=== PATIENT | female | born 1960 | race Two or more races ===

== ENCOUNTER 2020-01-12 01:14 | Inpatient (IN) | payer OTHER ==
[2020-01-12] VITALS (7 sets, daily range): BP systolic 108–156; BP diastolic 61–77
[~2020-01-12] VITALS: Ht 157.5 cm; Wt 65.0 kg
--- NOTE | 2020-01-12 01:17 | Emergency Room Report ---
History of Present Illness General Chief Complaint: shortness of breath Source: Patient, EMS Present Illness HPI Patient is a 59-year-old female presented for increased difficulty with breathing. Patient was brought in by EMS. Patient had onset of symptoms today. Had not been having any fever.Patient had worsening shortness of breath today. Had recent coronavirus testing with her doctor but does not know the result yet. Patient had been having increased shortness of breath. Increased generalized body aches.. Had not been vomiting. Denies any leg pain or swelling. No prior cardiac history. Allergies: Coded Allergies: No Known Allergies (Unverified , 01/12/20) Patient History Past Medical History: see triage record Reviewed Nursing Documentation: PMH: Agreed; PSxH: Agreed Review of Systems All Other Systems: negative except mentioned in HPI Physical Exam Sp02 EP Interpretation: reviewed, normal General Appearance: GCS 15, mild distress Head: atraumatic ENT: normal ENT inspection, hearing grossly normal, normal voice Neck: normal inspection, full range of motion, supple, no bony tend Respiratory: normal inspection, normal breath sounds, no respiratory distress, no retraction, wheezing Cardiovascular #1: regular rate, rhythm, no edema Gastrointestinal: normal inspection, normal bowel sounds, non tender, soft, no guarding, no hernia Genitourinary: no CVA tenderness Musculoskeletal: normal inspection, back normal, normal range of motion Neurologic: alert, motor strength/tone normal, channel marketing specialist III-XII nml as tested, oriented x3, responsive, speech normal, normal inspection Psychiatric: normal inspection, judgement/insight normal, mood/affect normal Skin: no rash Medical Decision Making Diagnostic Impression: Primary Impression: Abdominal pain Additional Impressions: Lactic acidosis Dehydration ER Course Patient presented for shortness of breath. Differential diagnosis include was not limited to pneumonia, sepsis, anemia, congestive heart failure, acidosis among others. Because of complexity of patient's case laboratory tests and imaging studies were ordered. Patient was noted to have some symptoms consistent with a coronavirus. Coronavirus test was negative. Chest x-ray showed some increased interstitial markings without any focal infiltrate. Laboratory testing showed normal white blood count with adequate hemoglobin. She is also given steroids and breathing treatment. Lactic acid level was noted to be elevated. Patient started on IV fluids. She was given IV antibiotics. Dr. Trevor Tobar was contacted for inpatient management. Status: improved Disposition: ADMITTED INPATIENT Condition: Serious Scripts No Active Prescriptions or Reported Meds Tucker Reyez MD Jan 12, 2020 01:17
--- NOTE | 2020-01-12 01:20 | NUR ---
ED Nurse Note: brought in by ambulance jeffyd ra 66 from home c/o generalized body ache, headache and sob x3 days. denies fever, nausea and vomitting. seen by PMD yesterday for same reason; awaiting covid result.changed into gown; attached to monitor. patient ao4 with no acute signs of distress. vitals stable to baseline. all safety measures met.
--- NOTE | 2020-01-12 01:30 | NUR ---
ED Nurse Note: iv access established. blood and urine collected;sent down to lab.
[2020-01-12 02:04] LABS: BASOPHILS % (AUTO) 1.2 % (0.0-2.0); EOSINOPHILS % (AUTO) 1.9 % (0.0-3.0); HEMOGLOBIN 12.8 G/DL (12.0-16.0); LYMPHOCYTES % (AUTO) 37.3 % (20.0-45.0); MEAN CORPUSCULAR VOLUME 88 FL (80-99); MONOCYTES % (AUTO) 7.4 % (1.0-10.0); NEUTROPHILS % (AUTO) 52.1 % (45.0-75.0); PLATELET COUNT 269 K/UL (150-450); RED BLOOD COUNT 4.19 M/UL (4.20-5.40); WHITE BLOOD COUNT 7.6 K/UL (4.8-10.8)
[2020-01-12 02:11] LABS: ANION GAP 9 mmol/L (5-15); BLOOD UREA NITROGEN 13 mg/dL (7-18); CALCIUM 9.2 MG/DL (8.5-10.1); CARBON DIOXIDE 28 MMOL/L (21-32); CHLORIDE 99 MMOL/L (98-107); CREATININE 0.9 MG/DL (0.55-1.30); POTASSIUM 3.1 MMOL/L (3.5-5.1); SODIUM 136 MMOL/L (136-145)
[2020-01-12 02:18] LABS: APPEARANCE,URINE SLIGHTLY CLOUDY; BILIRUBIN, URINE NEGATIVE (NEGATIVE); COLOR,URINE PALE YELLOW; GLUCOSE, URINE (UA) NEGATIVE (NEGATIVE); KETONES,URINE NEGATIVE (NEGATIVE); LEUKOCYTE ESTERASE ,URINE NEGATIVE (NEGATIVE); NITRITE,URINE NEGATIVE (NEGATIVE); PH,URINE 8 (4.5-8.0); PROTEIN,URINE NEGATIVE (NEGATIVE); UROBILINOGEN,URINE NORMAL MG/DL (0.0-1.0)
[2020-01-12 02:25] LABS: ALANINE AMINOTRANSFERASE 28 U/L (12-78); ALBUMIN 3.8 G/DL (3.4-5.0); ALKALINE PHOSPHATASE 64 U/L (46-116); ASPARTATE AMINO TRANSFERASE 24 U/L (15-37); BILIRUBIN,TOTAL 0.3 MG/DL (0.2-1.0); CKMB 3.8 NG/ML (0.0-3.6); CREATINE KINASE 345 U/L (26-308); PHOSPHORUS 2.4 MG/DL (2.5-4.9)
[2020-01-12] MEDS ORDERED: cefTRIAXone 1 GM in NS 55 ML IVPB ONE (02:30)
[2020-01-12] MEDS ORDERED: Albuterol/Ipratropium 3ml neb HHN ONE (02:30)
--- NOTE | 2020-01-12 02:30 | NUR ---
ED Nurse Note: lactic reflex drawn; sent down to lab.
--- NOTE | 2020-01-12 04:03 | NUR ---
Patients daughter Sil called and left her phone number [phone] in case needed.
--- NOTE | 2020-01-12 04:07 | NUR ---
ED Nurse Note: report given to tere montgomery. patient to be admitted to tele [id number] under the care of allyson naqvi.
--- NOTE | 2020-01-12 04:40 | NUR ---
TRANSFER TO FLOOR: Patient transferred to tele 203 as ordered, per allyson naqvi. Report given to tere montgomery. patient stable for transport. transferred to unit via gurney with js and rn. belongings and admission packet sent with patient.
--- NOTE | 2020-01-12 04:50 | NUR ---
NURSE NOTES: Received patient from Carol JUDD RN. Patient came to via gurney; patient was able to self transfer to bed with steady gait. Patient is A/O x4 patient is Divehi and [place]ankan speaking; able to make needs known. Patient is in stable condition; no acute distress noted. No pain reported at this time. Iv site is left AC 18G s/l; patient and flushed. no erythema or bleeding noted. Placed patient on 5 lead monitoring engineer: patient is running SR. Fall precaution in place, Yellow gown and soaks are on. Bed in lowest position, brake locked, side rails up x2. Call light with in reach. Patient educated to use call light when nedding assistance. Will contact Dr. Tobar in regards to admission orders. Will continue to monitor.
--- NOTE | 2020-01-12 05:03 | Diagnostic Imaging Report ---
EXAM: XR Chest, 1 View CLINICAL HISTORY: SOB TECHNIQUE: Frontal view of the chest. COMPARISON: No relevant prior studies available. FINDINGS: Lungs: Unremarkable. No consolidation. Pleural space: Unremarkable. No pneumothorax. Heart: Unremarkable. No cardiomegaly. Mediastinum: Unremarkable. Bones/joints: Degenerative change of the spine. Cholecystectomy clips, incidentally noted. Osseous demineralization. IMPRESSION: No focal infiltrate.
--- NOTE | 2020-01-12 05:05 | NUR ---
NURSE NOTES: Lest message for Dr. Tobar in regards to admission orders awaiting call back. Will continue to monitor.
--- NOTE | 2020-01-12 06:45 | NUR ---
NURSE NOTES: Received admission orders from Dr. Tobar noted and carried out.
--- NOTE | 2020-01-12 06:50 | NUR ---
NURSE NOTES: Followed up with Dr. Tobar for admission orders.
[2020-01-12] MEDS ORDERED: Morphine Sulfate 2mg/ml Inj(IV/IM USE ONLY) IVP PRN (07:15)
--- NOTE | 2020-01-12 07:45 | NUR ---
NURSE NOTES: RECEIVED PATIENT A/A/OX4 IN BED CALM ANC COMFORTABLE. PATIENT C/O DIFFICULTY SWALLOWING. ALTHOUGH, TOLERATES CLEAR LIQUID DIET. WILL INFORM PMD. PATIENT AMBULATES WITH MININMAL ASSISTANCE. NO ACUTE CARDIO-RESP DISTRESS NOTED. PIV PATENT AND INTACT. BED IS IN THE LOWEST POSITION AND BED BRAKES LOCKED @ ALL TIMES. CALL LIGHT IS WITHIN EASY REACH. SIDERAILS ARE UPX2. WILL CONT TO MONITOR.
--- NOTE | 2020-01-12 07:46 | NUR ---
NURSE HAND-OFF REPORT: Important Events on Shift:Patient was admitted. Patient Status: Stable Diet: Clear liquid Pending Orders: [] Pending Results/Labs:[] Pending MD notification:[] Latest Vital Signs: Temperature 98.1 , Pulse 98 , B/P 121 /69 , Respiratory Rate 18 , O2 SAT 98 , Room Air, O2 Flow Rate . Vital Sign Comment: [] EKG Rhythm: Sinus Rhythm Rhythm change?: N MD Notified?: - MD Response: Latest Pascual Fall Score: 20 Fall Risk: Low Risk Safety Measures: Call light Within Reach, Bed Alarm Zone 1, Side Rails Side Rails x2, Bed position Low and Locked. Fall Precautions: Yellow Socks Yellow Gown Door Sign Patient Fall Education Report given to Isha HONG.
--- NOTE | 2020-01-12 13:25 | NUR ---
NURSE NOTES: TRANSFER TO [facility]. REPORT GIVEN TO QUEENIE IYER. PERSONAL BELONGINGS NOTED. NO ACUTE RESP DISTRESS NOTED. AMBULATES WITH MINIMAL ASSISTANCE. NS @ 100CC/HR INFUSING WELL. PIV PATENT AND INTACT. BED IN THE LOWEST POSITION. CALL LIGHT IS WITHIN REACH. SIDERAILS ARE UPX2. WILL CONT TO MONITOR.
--- NOTE | 2020-01-12 16:44 | History and Physical Report ---
DATE OF ADMISSION: 01/12/2020 HISTORY OF PRESENT ILLNESS: This is a 59-year-old female who came to the emergency room for multiple symptoms, short of breath, choking sensation, lactic acidosis, hypokalemia, abdominal pain. Her COVID was negative. The patient is alert, oriented, doing better. The patient also failed swallow evaluation. Currently, she is awake, alert, sitting at the bedside. On exam, the patient has no medical issues. PAST MEDICAL HISTORY: None. ALLERGIES: None. FAMILY HISTORY: Noncontributory. PHYSICAL EXAMINATION: GENERAL: This is an elderly female, currently very comfortable, sitting in the bed with the family. VITAL SIGNS: Blood pressure is 120/61, pulse 71, respirations 19, temperature 96.7. HEENT: NAD. CHEST: Bilaterally clear. CARDIOVASCULAR: Regular rhythm. No gallop. No murmur. ABDOMEN: Soft. Positive bowel sounds. Nontender. EXTREMITIES: No edema. GENITOURINARY: Deferred. LABORATORY DATA: White count 7.6, hemoglobin 13, hematocrit 37, platelets are 269. Chemistry panel, lactic acid 2.30, now is 1.30, potassium 3.1. CK was 345. Troponins are negative and BNP was negative. C-reactive protein is negative. Urine has 1+ blood. Her chest x-ray is negative. The patient's ABG pH was normal. ASSESSMENT: 1. No abdominal pain. 2. Choking sensation. 3. Generalized weakness. PLAN: We will order CBC, BMP tomorrow. Swallow evaluation today. Continue clear liquid diet. Discussed with the daughter who was at bedside. Trevor Tobar M.D. DR: TIFFANY JOB#: [id number] CC:
--- NOTE | 2020-01-12 19:40 | NUR ---
NURSE NOTES: received pt and report from QUEENIE [place]. Patient alert and oriented x4 in no acute distress. IV site noted clean dry and intact and running fluids as ordered. Patient with no c/o pain. Plan of care discussed.
--- NOTE | 2020-01-12 19:43 | NUR ---
HAND-OFF: Report given to QUEENIE Polanco. pt is stable condition.
--- NOTE | 2020-01-12 22:46 | NUR ---
NURSE NOTES: Changed CATALOGING ASSISTANT syringe. Wasted 3.74 from previous syringe and after setting up new syringe VTBI was at 27.8
[2020-01-13] VITALS: BP 121/70
[2020-01-13 04:00] VITALS: BP 98/52
[2020-01-13 05:38] LABS: BASOPHILS % (AUTO) 0.5 % (0.0-2.0); EOSINOPHILS % (AUTO) 0.2 % (0.0-3.0); HEMATOCRIT 32.6 % (37.0-47.0); HEMOGLOBIN 11.2 G/DL (12.0-16.0); LYMPHOCYTES % (AUTO) 34.2 % (20.0-45.0); MEAN CORPUSCULAR VOLUME 89 FL (80-99); MONOCYTES % (AUTO) 7.3 % (1.0-10.0); NEUTROPHILS % (AUTO) 57.8 % (45.0-75.0); PLATELET COUNT 245 K/UL (150-450); RED BLOOD COUNT 3.65 M/UL (4.20-5.40); RED CELL DISTRIBUTION WIDTH 11.4 % (11.6-14.8); WHITE BLOOD COUNT 8.1 K/UL (4.8-10.8)
[2020-01-13 05:44] LABS: ANION GAP 6 mmol/L (5-15); BLOOD UREA NITROGEN 6 mg/dL (7-18); CALCIUM 8.4 MG/DL (8.5-10.1); CARBON DIOXIDE 25 MMOL/L (21-32); CHLORIDE 107 MMOL/L (98-107); CREATININE 0.7 MG/DL (0.55-1.30); POTASSIUM 3.6 MMOL/L (3.5-5.1); SODIUM 138 MMOL/L (136-145)
--- NOTE | 2020-01-13 07:19 | NUR ---
NURSE HAND-OFF: Important Events on Shift:NA Patient Status: stable Diet: clear liquid Pending Orders: swallow evaluation for Tuesday01/14/20 Pending Results/Labs:NA Pending MD notification:NA Latest Vital Signs: Temperature 97.7 , Pulse 63 , B/P 98 /52 , Respiratory Rate 15 , O2 SAT 99 , Room Air, O2 Flow Rate 2.0 . Vital Sign Comment: stable throughout shift Latest Pascual Fall Score: 20 Fall Risk: Low Risk Safety Measures: Call light Within Reach, Bed Alarm Zone 2, Side Rails Side Rails x3, Bed position Low and Locked. Fall Precautions: Yellow Socks Yellow Gown Door Sign Patient Fall Education Report given to QUEENIE Bush.
--- NOTE | 2020-01-13 07:30 | NUR ---
NURSE NOTES: Patient lying in bed awake. No complain of pain or distress at this time. Skin intact and dry. IV dressing intact and dry. Bed lowest position. Call light within reach. Will continue to monitor.
[2020-01-13 07:58] VITALS: BP 108/63
[2020-01-13 12:00] VITALS: BP 102/62
--- NOTE | 2020-01-13 14:48 | NUR ---
NURSE NOTES: Spoke to regarding patient and patient can go home if tolerate Full liquid diet. Order noted and carried out.
[2020-01-13 16:00] VITALS: BP 108/61
--- NOTE | 2020-01-13 17:24 | NUR ---
NURSE NOTES: Patient tolerated Full liquid diet well and patient stated "I'm feel much better." Will discharge patient as ordered.
--- NOTE | 2020-01-13 19:32 | NUR ---
NURSE NOTES: Patient discharged with family member in stable condition. Discharge instruction given to patient and family member and verbalized. Belonging given to to patient. IV and ID removed. Instructed to follow up with MD and verbalized understanding. Patient ambulated out with all personal belongings with steady gait.
--- NOTE | 2020-01-14 09:54 | Discharge Summary ---
Discharge Summary Discharge Summary _ DATE OF ADMISSION: 01/12/2020 DATE OF DISCHARGE: 01/13/2020 DISCHARGED BY: Dr. Tobar REASON FOR ADMISSION: 59 years old female with past medical history of gastritis, status post cholecystectomy a year ago, GERD, presented with choking sensation and shortness of breath. Upon evaluation signs are stable. Pulse oximetry was stable on room air. Rapid COVID-19 was negative. Laboratory work-up revealed no leukocytosis, stable hemoglobin, hematocrit and platelet count. ABG was stable on room air. Chemistry revealed potassium 3.1. Phosphorus 2.4. Lactic acid 2.3, repeated 1.2. Stable LFT and renal parameters . Troponin negative. EKG revealed sinus rhythm, no acute ischemic changes. Urinalysis revealed no evidence of urinary tract infection. Chest x-ray demonstrated no acute cardiopulmonary pathology. Patient subsequently admitted for further management. HOSPITAL COURSE: Patient admitted to medical surgical floor. Patient started on the IV hydration. Patient started on full liquid diet with aspiration precautions. Swallow evaluation was ordered. Potassium and phosphorus were replaced. Symptomatic treatment provided. Choking sensation resolved. Patient clinically stabilized and wanted to go home. Outpatient follow-up with a primary care provider. Due to rapid and unexpected improvement patient condition patient was discharged in 1 day. FINAL DIAGNOSES: Choking sensation - resolved Hypokalemia -repleted Generalized weakness DISCHARGE MEDICATIONS: None DISCHARGE INSTRUCTIONS: Patient was discharged home. Follow-up with a primary care provider in 1 week. I have been assigned to dictate discharge summary for this account. I was not involved in the patient's management. Megha Blanchard NP Jan 14, 2020 09:54
== END 2020-01-13 19:32 | disposition home or self-care (01) | DRG 204 ==
LOC: EDBD 01:14 → EMR 01:59 → 2E 03:14 → EDBEDREQ 04:09 → 3E 13:24
DX: R06.02 Shortness of breath (principal); E87.2 Acidosis; R09.89 Other specified symptoms and signs involving the circulatory and respiratory systems; E87.6 Hypokalemia; K21.9 Gastro-esophageal reflux disease without esophagitis; R53.1 Weakness; R10.9 Unspecified abdominal pain
CPT/HCPCS: 36415; 71045; 80048; 80053; 81003; 82550; 82553; 82803; 83605; 83690; 83735; 83880; 84100; 84484; 85025; 85379; 85610; 85730; 86140; 87040; 93005; 94640; 96361; 96365; 96375; 99285; J7030; J7620; J8499; U0002

== ENCOUNTER 2020-02-01 14:47 | Emergency (ER) | payer OTHER ==
[~2020-02-01] VITALS: Ht 157.5 cm; Wt 61.2 kg
[2020-02-01 15:00] VITALS: BP 143/87
--- NOTE | 2020-02-01 15:00 | NUR ---
ED Nurse Note: Pt walked in to ED c/o palpitation onset this morning. Pt also repports weakness, shakiness. Stated that she feels her heart is racing/ pounding. AAOx4, verbally responsive. No SOB, on room air. Pt placed on pvc monitor. ERMD at bedside.
--- NOTE | 2020-02-01 15:22 | Emergency Room Report ---
History of Present Illness General Chief Complaint: Palpitations Source: Patient Present Illness HPI Disclaimer: Please note that this report is being documented using [employer] technology. This can lead to erroneous entry secondary to incorrect interpretation by the dictating instrument. HPI: 59-year-old female history of hypertension presents for evaluation of palpitations. Patient states she was at rest few hours ago when she felt her heart racing. She believes her blood pressures were elevated at that time but was unable to use her home meter. She denies chest pain, chest pressure, diaphoresis, nausea, vomiting, fever, chills, headache, shortness of breath, lightheadedness. She has felt weak for several days and was recently admitted to this hospital For hypokalemia and hypophosphatemia. She has not yet followed up with her doctor. She reports drinking coffee this morning. Denies cigarette use or other stimulant use. Unknown whether or not thyroid function studies have recently been performed. PMH: Gastritis PSH: Cholecystectomy Allergies: Denied Social Hx: Denies tobacco drug or alcohol use Allergies: Coded Allergies: No Known Allergies (Unverified , 01/12/20) COVID-19 Screening Contact w/high risk pt: No Experienced COVID-19 symptoms?: No COVID-19 Testing performed TINTER PHOTOGRAPH: No Patient History Now: No Nursing Documentation-PMH Hx Cardiac Problems: No Hx Cancer: No Hx Gastrointestinal Problems: Yes - gastritis Hx Neurological Problems: No Review of Systems All Other Systems: negative except mentioned in HPI Physical Exam Vital Signs Date Time Temp Pulse Resp B/P (MAP) Pulse Ox O2 Delivery O2 Flow Rate FiO2 02/01/20 14:56 98.4 92 19 143/87 (105) 96 Room Air General: Awake and alert, no acute distress HEENT: NC/AT. EOMI. Cardiovascular: RRR. S1 and S2 normal. No murmur appreciated Resp: Normal work of breathing. No cough, wheezing or crackles appreciated Abdomen: Abdomen is soft, nondistended. Nontender Skin: Intact. No abrasions, laceration or rash over the exposed skin MSK: Normal tone and bulk. Moving all extremities. No obvious deformity. Neuro: Awake and alert. Mentating appropriately. Procedures Critical Care Time Critical Care Time Total critical care time: Approximately 45 minutes Due to a high probability of clinically significant, life threatening deterioration, the patient required the highest level of preparedness to intervene emergently and I personally spent this critical care time directly and personally managing the patient. This critical care time included obtaining a history, examining the patient, pulse oximetry, ordering and reviewing studies, ordering treatments, evaluating response to treatment and updating management plan as needed, frequent reassessment and discussion with other providers as well as arranging for ultimate disposition. This critical to care time was p erformed to assess and manage the high probability of life-threatening deterioration that could result in multiorgan failure. This critical care time is separate from the separately billable procedures and treating other patients. Medical Decision Making Diagnostic Impression: Primary Impression: Palpitations Additional Impression: Hypokalemia ER Course 59-year-old female presenting for evaluation of palpitations. Differential includes is not limited to arrhythmia, ACS, dehydration, electrolyte abnormality, anxiety, hyperthyroidism, stimulant use, caffeine use among others. She is well-appearing stable vital signs, blood pressure and heart rate within normal limits. EKG shows normal sinus rhythm without ischemic changes. Chest x-ray unremarkable. Labs again show mild hypokalemia with a potassium of 3.1. IV and oral potassium was given. The patient symptoms are resolved. She states she has been having muscle cramps lately and has a very poor diet because of her chronic gastritis. May have chronic potassium insufficiency due to poor diet and will refer to her PMD for further work-up. Also start her on potassium supplementation for a week and have her retested by her PMD. Patient feels well improved and stable for outpatient follow-up. Instructed to return with new or worsening symptoms. She understands and agrees with this treatment plan. Laboratory Tests Test 02/01/20 15:08 White Blood Count 7.6 K/UL (4.8-10.8) Red Blood Count 4.26 M/UL (4.20-5.40) Hemoglobin 13.3 G/DL (12.0-16.0) Hematocrit 38.7 % (37.0-47.0) Mean Corpuscular Volume 91 FL (80-99) Mean Corpuscular Hemoglobin 31.4 PG (27.0-31.0) H Mean Corpuscular Hemoglobin Concent 34.4 G/DL (32.0-36.0) Red Cell Distribution Width 11.5 % (11.6-14.8) L Platelet Count 316 K/UL (150-450) Mean Platelet Volume 6.3 FL (6.5-10.1) L Neutrophils (%) (Auto) 56.0 % (45.0-75.0) Lymphocytes (%) (Auto) 33.0 % (20.0-45.0) Monocytes (%) (Auto) 8.9 % (1.0-10.0) Eosinophils (%) (Auto) 0.9 % (0.0-3.0) Basophils (%) (Auto) 1.4 % (0.0-2.0) Sodium Level 133 MMOL/L (136-145) L Potassium Level 3.1 MMOL/L (3.5-5.1) L Chloride Level 96 MMOL/L (98-107) L Carbon Dioxide Level 20 MMOL/L (21-32) L Anion Gap 17 mmol/L (5-15) H Blood Urea Nitrogen 7 mg/dL (7-18) Creatinine 0.8 MG/DL (0.55-1.30) Estimated Glomerular Filtration Rate > 60 mL/min (>60) Glucose Level 131 MG/DL (74-106) H Calcium Level 8.9 MG/DL (8.5-10.1) Phosphorus Level 2.6 MG/DL (2.5-4.9) Magnesium Level 1.9 MG/DL (1.8-2.4) Total Bilirubin 0.4 MG/DL (0.2-1.0) Aspartate Amino Transferase (AST) 22 U/L (15-37) Alanine Aminotransferase (ALT) 22 U/L (12-78) Alkaline Phosphatase 69 U/L (46-116) Troponin I 0.000 ng/mL (0.000-0.056) Total Protein 7.9 G/DL (6.4-8.2) Albumin 4.0 G/DL (3.4-5.0) Globulin 3.9 g/dL Albumin/Globulin Ratio 1.0 (1.0-2.7) Thyroid Stimulating Hormone (TSH) 1.787 uiU/mL (0.358-3.740) EKG Diagnostic Results Troponin ordered: Yes When was troponin ordered?: Feb 01, 2020 EKG Time: 14:57 Rate: normal Rhythm: NSR ST Segments: no acute changes Other Impression Sinus rhythm, normal axis, normal intervals, no ST segment changes. Rhythm Strip Diag. Results Rhythm Strip Time: 14:57 EP Interpretation: yes Rate: 80s Rhythm: NSR, no PVC's, no ectopy Chest X-Ray Diagnostic Results Chest X-Ray Diagnostic Results : Chest X-Ray Ordered: Yes # of Views/Limited/Complete: 1 View Indication: Other - Palpitations Interpretation: no consolidation, no effusion, no pneumothorax Impression: No acute disease Electronically Signed by: Electronically signed by Dr. Tomás Garrett Last Vital Signs Date Time Temp Pulse Resp B/P (MAP) Pulse Ox O2 Delivery O2 Flow Rate FiO2 02/01/20 15:00 98.4 94 19 143/87 96 Room Air Disposition: HOME, SELF-CARE Condition: Stable Scripts Potassium Chloride* (K-DUR*) 20 Meq Tab.er.prt 20 MEQ ORAL DAILY for SUPPLEMENT, #7 TAB 0 Refills Prov: Tomás Garrett MD 02/01/20 Tomás Garrett MD Feb 01, 2020 15:22
[2020-02-01 15:53] LABS: BASOPHILS % (AUTO) 1.4 % (0.0-2.0); EOSINOPHILS % (AUTO) 0.9 % (0.0-3.0); HEMATOCRIT 38.7 % (37.0-47.0); HEMOGLOBIN 13.3 G/DL (12.0-16.0); MEAN CORPUSCULAR VOLUME 91 FL (80-99); MONOCYTES % (AUTO) 8.9 % (1.0-10.0); PLATELET COUNT 316 K/UL (150-450); RED BLOOD COUNT 4.26 M/UL (4.20-5.40); RED CELL DISTRIBUTION WIDTH 11.5 % (11.6-14.8); WHITE BLOOD COUNT 7.6 K/UL (4.8-10.8)
[2020-02-01 15:54] LABS: ANION GAP 17 mmol/L (5-15); BLOOD UREA NITROGEN 7 mg/dL (7-18); CALCIUM 8.9 MG/DL (8.5-10.1); CARBON DIOXIDE 20 MMOL/L (21-32); CHLORIDE 96 MMOL/L (98-107); CREATININE 0.8 MG/DL (0.55-1.30); POTASSIUM 3.1 MMOL/L (3.5-5.1); SODIUM 133 MMOL/L (136-145)
[2020-02-01 16:06] LABS: ALANINE AMINOTRANSFERASE 22 U/L (12-78); ALKALINE PHOSPHATASE 69 U/L (46-116); ASPARTATE AMINO TRANSFERASE 22 U/L (15-37); BILIRUBIN,TOTAL 0.4 MG/DL (0.2-1.0); PHOSPHORUS 2.6 MG/DL (2.5-4.9)
[2020-02-01] MEDS ORDERED: POTASSIUM CHLO20 ME1 ORAL (16:21)
--- NOTE | 2020-02-01 16:45 | Diagnostic Imaging Report ---
Indication: Chest pain Technique: One view of the chest Comparison: 01/12/2020 Findings: Lungs and pleural spaces are clear. Heart size is normal. No significant change Impression: No acute process
[2020-02-01 17:25] VITALS: BP 117/72
--- NOTE | 2020-02-01 17:25 | NUR ---
ED Nurse Note: Pt cleared by ERMD for discharge. DC instructions/prescription was given and explained to pt and verbalized understanding of teachings. All medical deviecs such as ID band and IV line removed. Pt is AAO x4, ambulatory and left with all personal belongings.
--- NOTE | 2020-02-04 06:20 | Cardiology Report ---
APPROVED REPORT EKG Measurement Heart [id number] OR 158P77 [id number] <Conclusion> Normal sinus rhythm Nonspecific ST abnormality Abnormal ECG
== END 2020-02-01 17:25 | disposition home or self-care (01) ==
LOC: EMR 15:34
DX: R00.2 Palpitations (principal); E87.6 Hypokalemia; I10 Essential (primary) hypertension; Z90.49 Acquired absence of other specified parts of digestive tract; K29.50 Unspecified chronic gastritis without bleeding
CPT/HCPCS: 36415; 71045; 80053; 83735; 84100; 84443; 84484; 85025; 93005; 96361; 96365; 99291; J3480; J7030; J8499

== ENCOUNTER 2020-02-04 19:11 | Emergency (ER) | payer OTHER ==
[~2020-02-04] VITALS: Ht 162.6 cm; Wt 74.8 kg
[~2020-02-04 19:11] MED LIST: POTASSIUM CHLO20 ME1 ORAL
--- NOTE | 2020-02-04 19:20 | NUR ---
ED Nurse Note: pt walked in c/o dizziness, weak, chest pain, and burning sensation in her hands. Pt stated unk time but was at ED for similar reasons and was treated. Pt stated her s/s comes and goes, unk triggers. changed into gown; attached to monitor. ekg done at bedside. NSR. all safety measures met.
[2020-02-04 19:30] VITALS: BP 127/85
--- NOTE | 2020-02-04 19:30 | NUR ---
ED Nurse Note: ekg done at bedside. patient refused iv access insertion and all care. patient states "i want to go home." explained risk and benefits x3; ermd at bedside; patient still insists on leaving ama.
[2020-02-04 19:45] VITALS: BP 129/83
--- NOTE | 2020-02-04 19:45 | NUR ---
AMA: SEE AMA FORM.
--- NOTE | 2020-02-05 16:22 | Cardiology Report ---
APPROVED REPORT EKG Measurement Heart [id number] FL 154P66 [id number] <Conclusion> Normal sinus rhythm Nonspecific T wave abnormality Prolonged QT Abnormal ECG
--- NOTE | 2020-02-09 06:38 | Emergency Room Report ---
History of Present Illness General Chief Complaint: Chest Pain Source: Patient Present Illness HPI 60-year-old female presents the ED for evaluation. Describing palpitations and dizziness. Started this morning. Denies chest pain. Denies fevers or chills. States she was seen here a few days ago for similar presentation. Describes tingling sensation in hands and feet occasionally. No other aggravating re lieving factors. Denies any other associated symptoms Allergies: Coded Allergies: No Known Allergies (Unverified , 01/12/20) COVID-19 Screening Contact w/high risk pt: No Experienced COVID-19 symptoms?: No COVID-19 Testing performed FOUR H AGENT: No Patient History Past Medical History: GERD Past Surgical History: none Pertinent Family History: none Social History: Denies: smoking, alcohol use, drug use Now: No Immunizations: UTD Reviewed Nursing Documentation: PMH: Agreed; PSxH: Agreed Nursing Documentation-PMH Hx Cardiac Problems: No Hx Cancer: No Hx Gastrointestinal Problems: Yes - gastritis Hx Neurological Problems: No Review of Systems All Other Systems: negative except mentioned in HPI Physical Exam Sp02 EP Interpretation: reviewed, normal General Appearance: no apparent distress, alert, GCS 15, non-toxic Head: normocephalic, atraumatic Eyes: bilateral eye normal inspection, bilateral eye PERRL ENT: hearing grossly normal, normal pharynx, no angioedema, normal voice Neck: full range of motion, supple/symm/no masses Respiratory: chest non-tender, lungs clear, normal breath sounds, speaking full sentences Cardiovascular #1: regular rate, rhythm, no edema Cardiovascular #2: 2+ carotid (R), 2+ carotid (L), 2+ radial (R), 2+ radial (L), 2+ dorsalis pedis (R), 2+ dorsalis pedis (L) Gastrointestinal: normal bowel sounds, non tender, soft, non-distended, no guarding, no rebound Rectal: deferred Genitourinary: normal inspection, no CVA tenderness Musculoskeletal: back normal, normal range of motion, gait/station normal, non- tender Neurologic: alert, motor strength/tone normal, oriented x3, sensory intact, responsive, speech normal Psychiatric: judgement/insight normal, memory normal, mood/affect normal, no suicidal/homicidal ideation Reflexes: 3+ bicep (R), 3+ bicep (L), 3+ tricep (R), 3+ tricep (L), 3+ knee (R), 3+ knee (L) Lymphatic: no adenopathy Medical Decision Making Diagnostic Impression: Primary Impression: Palpitations ER Course Hospital Course 60-year-old F presents ED complaining of palpitations Differential diagnoses include: afib, Vtach, SVT, anxiety, dehydration Clinical course Patient placed on stretcher. After initial history and physical I ordered labs, EKG, chest x-ray, IVFs. EKGnormal sinus rhythm no acute ischemic changes interpreted by me She was seen here a few days ago for similar presentation. Had comprehensive work-up which was unremarkable except for mildly low potassium. Symptoms seem to be more consistent with anxiety. Patient states that since her EKG was normal she wanted to leave. Patient sta radha she wishes to go home. Understands the risks of leaving. Patient has competency to make her own decisions. Signed AMA form. I. I feel this is a highly complex case requiring extensive working including EKG/Rhythm strip, Xray/CT/US, Blood/urine lab work, repeat exams while in ED, and administration of strong opiates/narcotics for pain control, admission to hospital or close patient follow up. Diagnosis - palpitations Patient left AMA EKG Diagnostic Results Troponin ordered: No - Patient refused Rate: normal Rhythm: NSR ST Segments: no acute changes ASA given to the pt in ED: No Rhythm Strip Diag. Results EP Interpretation: yes Rhythm: NSR, no PVC's, no ectopy Status: unchanged Disposition: AGAINST MEDICAL ADVICE Condition: Stable Referrals: [facility],REFERRING (PCP) Rosalio Steven MD Feb 09, 2020 06:38
== END 2020-02-04 19:45 | disposition left against medical advice (07) ==
LOC: EMR 19:45
DX: R00.2 Palpitations (principal); R42 Dizziness and giddiness; K21.9 Gastro-esophageal reflux disease without esophagitis
CPT/HCPCS: 93005; 99282